=== PATIENT | male | born 1980 | race Caucasian/White ===

== ENCOUNTER 2018-02-20 17:16 | Emergency (ER) | payer OTHER ==
[~2018-02-20] VITALS: Wt 83.1 kg
[2018-02-20] MEDS ORDERED: ACETAMINOPHEN 325 MG TAB PO ONE (19:00)
[2018-02-20] MEDS ORDERED: ACET500C5 PO (19:36)
--- NOTE | 2018-02-20 19:40 | ERD ---
ER Documentation Chief Complaint Chief Complaint HEADACHE WHILE DOING GYM WORKOUT, NO DIZZINESS, AOX4 HPI 37-year-old male presents with a posterior headache while at the gym today. It radiated to the back of his head. Is currently improved. Denies any vomiting, fevers, visual changes except some brief flashes of light during the pain which is resolved. The pain radiates from the base of the skull. Denies any weakness, restricted range of motion or deficits. Denies any fevers, vomiting, additional symptoms. ROS All systems reviewed and are negative except as per history of present illness. Medications Home Meds Active Scripts Acetaminophen* (Tylophen*) 500 Mg Capsule, 1 CAP PO Q6H PRN for PAIN AND OR ELEVATED TEMP, #20 CAP Prov:BARBARA BLACK MD 02/20/18 PMhx/Soc Medical and Surgical Hx: pt denies Medical Hx, pt denies Surgical Hx Hx Alcohol Use: No Hx Substance Use: No Hx Tobacco Use: No Smoking Status: Never smoker Physical Exam Vitals Vital Signs Date Temp Pulse Resp B/P (MAP) Pulse Ox O2 O2 Flow FiO2 Time Delivery Rate 02/20/18 98.4 90 18 160/96 100 17:26 (117) Physical Exam Const: No acute distress Head: Atraumatic Eyes: Normal Conjunctiva ENT: Normal External Ears, Nose and Mouth. Neck: Full range of motion. No meningismus. Resp: Clear to auscultation bilaterally Cardio: Regular rate and rhythm, no murmurs Abd: Soft, non tender, non distended. Normal bowel sounds Skin: No petechiae or rashes Back: No midline or flank tenderness Ext: No cyanosis, or edema Neur: Awake and alert. Normal gait. No appreciable focal neurologic deficits. Cranial nerves II through XII grossly intact. Psych: Normal Mood and Affect Results 24 hrs Current Medications Medications Dose Sig/Amyco Start Time Status Last (Trade) Ordered Route PRN Stop Time Admin Dose Reason Admin 650 mg ONCE ONCE 02/20/18 DC 02/20/18 Acetaminophen PO 19:00 02/20/18 19:00 (Tylenol 19:01 Tab) Procedures/MDM CT brain read as normal. Patient presents with a headache at the gym today. Signs and symptoms suggest some type of neuropathic pain possibly radiating from the cervical spine. There is no evidence of mass-effect, bleeding, signs of neurologic deficit or meningitis. He will be discharged home with further observation, Tylenol, primary, follow-up and return precautions. The patient was stable with no new complaints during the ER course. Clinically, there is no current evidence to suggest meningitis, sepsis, acute abdomen, pneumonia, stroke, acute coronary syndrome, pulmonary embolism, aortic dissection or any other emergent condition appearing to require further evaluation or hospitalization. Patient counseled regarding my diagnostic impression and care plan. Prior to discharge all questions answered. Pt agrees with treatment plan and understands strict return precautions. Pt is instructed to follow up with primary care provider within 24-48 hours. Precautionary instructions provided including instructions to return to the ER if not improving or for any worsening or changing symptoms or concerns. The patient's blood pressure was elevated (>120/80) but appears stable without evidence of hypertension emergency or urgency. The patient was counseled about the risks of hypertension and urged to pursue outpatient monitoring and therapy within a week with their primary care physician. I discussed the findings with the patient. I advised the patient to follow-up with the primary physician in about 1-2 days, sooner if needed and return if any concern. Departure Diagnosis: Primary Impression: Headache Headache type: unspecified Headache chronicity pattern: unspecified pattern Intractability: not intractable Qualified Codes: R51 - Headache Condition: Stable Patient Instructions: Headache, Unspecified, Hypertension, To Be Confirmed Referrals: NO PRIMARY,CARE PHYSICIAN (PCP) Additional Instructions: CT read as normal. Left suspect pinched nerve radiating from neck. Recheck for new or worsening symptoms with primary care doctor. BARBARA BLACK MD Feb 20, 2018 19:40
[2018-02-20 19:50] VITALS: BP 138/98; PULSE 76; RESP 18
== END 2018-02-20 19:50 | disposition home or self-care (01) ==
LOC: FTE 17:16
DX: R51 Headache (principal)
CPT/HCPCS: 70450